=== PATIENT | female | born 1980 | race African-American/Black ===

== ENCOUNTER 2016-12-08 18:33 | Emergency (ER) | payer OTHER ==
[~2016-12-08] VITALS: Ht 167.6 cm; Wt 72.7 kg
[~2016-12-08 18:33] MED LIST: IBUP800T23 PO; ORPH100T PO; TRAM50 PO
[2016-12-08 18:35] VITALS: BP 145/83; PULSE 63; RESP 14; TEMP 97.4; O2SAT 100
[2016-12-08 19:18] VITALS: BP 145/82; PULSE 48; RESP 16; O2SAT 100
[2016-12-09] MEDS ORDERED: ZOFR4TAB3 SL (00:10)
--- NOTE | 2016-12-09 00:11 | PD ---
HPI Chief Complaint: GI Complaint Time Seen by Provider: 23:52 Travel History International Travel<30 days: No Contact w/Intl Traveler<30days: No Traveled to known affect area: No History of Present Illness HPI The patient is a 36 year old female who presents to the [facility] emergency department with a history of nausea and vomiting that began at 9 PM last night while she was at work. She reports that she had a leave work because of it. She reports that she's had vomiting 10 throughout the day today. She denies having any diarrhea. Her last bowel movement was earlier today. She reports that it was a normal bowel movement for her. 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 The patient denies having any fevers or chills. The patient denies having any abdominal pain associated with this. The patient denies any recent cough, congestion, neck pain, chest pain, shortness of breath , urinary symptoms, or neurologic symptoms. LMP: November 18, 2016 [facility] Past Medical History Narrative Medical The patient's past medical history is significant for anxiety. Anxiety: Yes Diminished Hearing: No ?: Not LMP: 11/18/2016 : 0 Past Surgical History Narrative Surgical The patient's past surgical history is reportedly none. Social History Alcohol Use: No (socially) Tobacco Use: No (quit smoking a month ago) Substance Use: No Allergies-Medications (Allergen,Severity, Reaction): Coded Allergies: No Known Allergies (Verified , 05/06/16) Reported Meds & Prescriptions Reported Meds & Active Scripts Active Bactrim DS (Sulfamethoxazole-Trimethoprim) 800-160 Mg Tab 1 Tab PO BID Zofran Odt (Ondansetron Odt) 4 Mg Tab 4 Mg SL Q6HR PRN Ultram (Tramadol HCl) 50 Mg Tab 50 Mg PO Q6H PRN FOR PAIN Ibuprofen 800 Mg Tab 800 Mg PO TID [id number] Mg 100 Mg [place] 100 Mg PO BID Narrative Medication None currently Review of Systems Except as stated in HPI: all other systems reviewed are Neg General / Constitutional: No: Fever, Chills Eyes: No: Visual changes HENT: No: Headaches, Rhinorrhea, Congestion Cardiovascular: No: Chest Pain or Discomfort Respiratory: No: Cough, Shortness of Breath Gastrointestinal: Positive: Nausea, Vomiting, Loss of Appetite, No: Diarrhea, Abdominal Pain, Changes in Bowel Habits, Indigestion Genitourinary: No: Dysuria Musculoskeletal: No: Pain Skin: No Rash Neurologic: No: Weakness, Focal Abnormalities, Change in Mentation, Slurred Speech, Sensory Disturbance Psychiatric: No: Depression Endocrine: No: Polydipsia Hematologic/Lymphatic: No: Easy Bruising Physical Exam Narrative General: The patient is a well-developed well-nourished female in no acute distress. Head and Neck exam: Head is normocephalic atraumatic. Eyes: EOMI, pupils are equal round and reactive to light. Nose: Midline septum with pink mucous membranes Mouth: Dentition unremarkable. Moist mucus membranes. Posterior oropharynx is not erythematous. No tonsillar hypertrophy. Uvula midline. Airway patent. Neck: No palpable lymphadenopathy. No nuchal rigidity. No thyromegaly. Cardiovascular: Regular rate and rhythm without murmurs, gallops, or rubs. Lungs: Clear to auscultation bilaterally. No wheezes, rhonchi, or rales. Abdomen: Soft, with minimal discomfort on palpation of the midepigastric area, no other tenderness on palpation of the other 4 quadrants of the abdomen. No guarding, rebound, or rigidity. Extremities: No clubbing, cyanosis, or edema. 2+ pulses in all 4 extremities. No calf tenderness on palpation. Back: No spinous process tenderness to palpation. No costovertebral angle tenderness to palpation. Neurologic Exam: Grossly nonfocal. Skin Exam: No rash noted. Intact skin that is warm and dry. Data Data Last Documented VS Vital Signs Date Time Temp Pulse Resp B/P Pulse Ox O2 Delivery O2 Flow Rate FiO2 12/09/16 00:13 55 16 149/80 99 Room Air 12/08/16 18:35 97.4 Orders Complete Blood Count With Diff (12/09/16 00:01) Comprehensive Metabolic Panel (12/09/16 00:01) Lipase (12/09/16 00:01) Urinalysis - C+S If Indicated (12/09/16 00:01) Iv Access Insert/Monitor (12/09/16 00:01) Ecg Monitoring (12/09/16 00:01) Oximetry (12/09/16 00:01) Ed Urine Pregnancytest Poc (12/09/16 00:01) Sodium Chlor 0.9% 1000 Ml Inj (Ns 1000 M (12/09/16 00:15) Ondansetron Inj (Zofran Inj) (12/09/16 00:15) Sodium Chlor 0.9% 1000 Ml Inj (Ns 1000 M (12/09/16 01:00) Urine Culture (12/09/16 01:00) Ceftriaxone Inj (Rocephin Inj) (12/09/16 01:30) Labs Laboratory Tests Test 12/09/16 12/09/16 00:05 01:00 White Blood Count 7.3 TH/MM3 Red Blood Count 3.54 MIL/MM3 Hemoglobin 12.2 GM/DL Hematocrit 35.4 % Mean Corpuscular Volume 99.8 FL Mean Corpuscular Hemoglobin 34.4 PG Mean Corpuscular Hemoglobin 34.5 % Concent Red Cell Distribution Width 12.3 % Platelet Count 182 TH/MM3 Mean Platelet Volume 7.5 FL Neutrophils (%) (Auto) 69.1 % Lymphocytes (%) (Auto) 22.8 % Monocytes (%) (Auto) 7.0 % Eosinophils (%) (Auto) 0.3 % Basophils (%) (Auto) 0.8 % Neutrophils # (Auto) 5.1 TH/MM3 Lymphocytes # (Auto) 1.7 TH/MM3 Monocytes # (Auto) 0.5 TH/MM3 Eosinophils # (Auto) 0.0 TH/MM3 Basophils # (Auto) 0.1 TH/MM3 CBC Comment DIFF FINAL Differential Comment Sodium Level 139 MEQ/L Potassium Level 3.6 MEQ/L Chloride Level 107 MEQ/L Carbon Dioxide Level 22.1 MEQ/L Anion Gap 10 MEQ/L Blood Urea Nitrogen 25 MG/DL Creatinine 0.75 MG/DL Estimat Glomerular Filtration 105 ML/MIN Rate Random Glucose 91 MG/DL Calcium Level 9.1 MG/DL Total Bilirubin 0.7 MG/DL Aspartate Amino Transf 14 U/L (AST/SGOT) Alanine Aminotransferase 17 U/L (ALT/SGPT) Alkaline Phosphatase 56 U/L Total Protein 8.1 GM/DL Albumin 4.4 GM/DL Lipase 85 U/L Urine Color YELLOW Urine Turbidity HAZY Urine pH 6.5 Urine Specific [place] 1.031 Urine Protein 100 mg/dL Urine Glucose (UA) NEG mg/dL Urine Ketones 150 mg/dL Urine Occult Blood NEG Urine Nitrite NEG Urine Bilirubin NEG Urine Urobilinogen 2.0 MG/DL Urine Leukocyte Esterase LARGE Urine RBC 14 /hpf Urine WBC 15 /hpf Urine Squamous Epithelial 7 /hpf Cells Urine Bacteria FEW /hpf Urine Mucus MANY /lpf Microscopic Urinalysis Comment CULTURE INDICATED MDM Medical Decision Making Medical Screen Exam Complete: Yes Emergency Medical Condition: Yes Medical Record Reviewed: Yes Differential Diagnosis Viral syndrome, versus gastroenteritis, versus pancreatitis, versus acid reflux Narrative Course During the course of the patients emergency department visit, the patients history, examination, and differential diagnosis were reviewed with the patient. The patient had IV access obtained and blood work sent for analysis. The patient was placed on a surveillance monitor with oximetry and blood pressure monitoring. The patient was provided Zofran 4 mg IV, normal saline 1 L IV fluid bolus. The patients laboratory studies were reviewed and remarkable for a CBC that is unremarkable, CMP shows a BUN of 25, AST of 14, lipase 85, urinalysis shows 150 ketones, protein 100, large leukocyte esterase, 14 rbc's, 15 wbc's, squamous epithelial cells are 7, few bacteria, culture indicated. The patient was given Rocephin 1 g IV. The patient was given a second liter of normal saline IV fluids. The patient was started on sips of liquids. The patient will be discharged home with a prescription for Bactrim DS and Zofran. The patient was instructed to push fluids and get any rest. The patient was instructed to push fluids with an electrolyte rich solution. The patient is resting comfortably and feels better, is alert and in no distress. The patients results and examination findings were discussed with the patient. The repeat examination is unremarkable and benign. The history, exam, diagnostic testing, and current condition do not suggest any significant pathology to warrant further testing, continued ED treatment, admission, or surgical evaluation at this point. The vital signs have been stable. The patient does not have uncontrollable pain, intractable vomiting, or other significant symptoms. The patient's condition is stable and appropriate for discharge. The patient will pursue further outpatient evaluation with a primary care physician or other designated or consulting physician as indicated in the discharge instructions. The patient expressed understanding and was agreeable with this plan. Diagnosis Primary Impression: Nausea & vomiting Qualified Code: R11.2 - Non-intractable vomiting with nausea, unspecified vomiting type Additional Impression: Urinary tract infection Qualified Code: N39.0 - Urinary tract infection without hematuria, site unspecified Referrals: Primary Care Physician 2 days Patient Instructions: Acute Nausea and Vomiting (ED), General Instructions, Urinary Tract Infection in Women (ED) Med/Other Pt SpecificInfo: Prescription(s) given Scripts Sulfamethoxazole-Trimethoprim (Bactrim DS)800-160 Mg Tab1 Tab PO BID #14 TAB Ref 0 Prov:Rachna De Souza MD 12/09/16 Ondansetron Odt (Zofran Odt)4 Mg Tab4 Mg SL Q6HR PRN (Nausea/Vomiting) #7 TAB Ref 0 Prov:Rachna De Souza MD 12/09/16 Disposition: 01 DISCHARGE HOME Condition: Stable Rachna De Souza MD Dec 09, 2016 00:10
[2016-12-09 00:13] VITALS: BP 149/80; PULSE 55; RESP 16; O2SAT 99
[2016-12-09 00:13] LABS: AUTOMATED NEUTROPHIL # 5.1 TH/MM3 (1.8-7.7); BASOPHIL # 0.1 TH/MM3 (0-0.2); BASOPHIL % 0.8 % (0.0-2.0); EOSINOPHIL % 0.3 % (0.0-4.0); HEMATOCRIT 35.4 % (35.0-46.0); HEMO FLAGS DIFF FINAL; LYMPH % 22.8 % (9.0-44.0); LYMPHOCYTE # 1.7 TH/MM3 (1.0-4.8); MEAN CELL VOLUME 99.8 FL (80.0-100.0); MEAN CORPUSCULAR HEMOGLOBIN 34.4 PG (27.0-34.0); MEAN CORPUSCULAR HGB CONC 34.5 % (32.0-36.0); NEUT % 69.1 % (16.0-70.0); PLATELET COUNT 182 TH/MM3 (150-450); RED BLOOD COUNT 3.54 MIL/MM3 (4.00-5.30); RED CELL DISTRIBUTION WIDTH 12.3 % (11.6-17.2); WHITE BLOOD COUNT 7.3 TH/MM3 (4.0-11.0)
[2016-12-09] MEDS ORDERED: SODIUM CHLOR 0.9% 1000 ML INJ 1,000 ML IV ONE ×2 (00:15→01:00)
[2016-12-09] MEDS ORDERED: ONDANSETRON HCL 4 MG/2 ML VIAL IV ONE (00:15)
[2016-12-09 00:32] LABS: ALT (GPT) 17 U/L (10-53); ANION GAP 10 MEQ/L (5-15); AST (GOT) 14 U/L (15-37); BICARBONATE 22.1 MEQ/L (21.0-32.0); BLOOD UREA NITROGEN 25 MG/DL (7-18); CHLORIDE 107 MEQ/L (98-107); GLOMERULAR FILTRATION RATE 105 ML/MIN (>89); POTASSIUM 3.6 MEQ/L (3.5-5.1); SODIUM (NA) 139 MEQ/L (136-145)
[2016-12-09 00:35] LABS: ALKALINE PHOSPHATASE 56 U/L (45-117); TOTAL BILIRUBIN ADULT 0.7 MG/DL (0.2-1.0)
[2016-12-09 01:20] LABS: BACTERIA, URINE FEW /hpf; BLOOD, URINE NEG (NEG); GLUCOSE,URINE NEG (NEG); KETONE, URINE 150 mg/dL (NEG); MUCUS URINE MANY /lpf (OCC); NITRITE,URINE NEG (NEG); PH, URINE 6.5 (5.0-8.5); SQUAMOUS EPITHELIAL CELL URINE 7 /hpf (0-5); URINE COLOR YELLOW (YELLW/STRAW)
[2016-12-09 01:21] LABS: COMMENT (UR) CULTURE INDICATED; CULTURE IF INDICATED CULTURE INDICATED
[2016-12-09] MEDS ORDERED: cefTRIAXone INJ 1,000 MG in SODIUM CHLORIDE 0.9% INJ 100 ML IV ONE (01:30)
[2016-12-09] MEDS ORDERED: BACT800T5 PO (01:31)
== END 2016-12-09 02:37 | disposition home or self-care (01) ==
LOC: NEPC 18:33
DX: R11.2 Nausea with vomiting, unspecified (principal); N39.0 Urinary tract infection, site not specified
CPT/HCPCS: 80053; 81001; 83690; 84703; 85025; 87086; 96361; 96374; 96375; 99284; J0696; J2405; J7030